=== PATIENT | male | born 1945 | race Caucasian/White ===

== ENCOUNTER 2016-10-12 09:55 | Observation (INO) ==
[2016-10-12 11:50] VITALS: BP 125/78
--- NOTE | 2016-10-12 13:18 | Cardiology History & Physical ---
Date of Encounter: 10/12/16 Time of Encounter: 12:30 Assessment and Plan (1) Atrial fibrillation Current Visit: Yes Status: Chronic Per cardiology: -KNown history of paroxysmal atrial fibrillation. -On eliquis and denies missed doses. -Patient is supposed to be on rhythmol, however states he is unable to afford medication and has not been taking for 2 weeks. -Cardiology will discharge patient and will schedule follow up appointment with Dr.John Feliz in 2-3 weeks. FOllow up set. Qualifiers: Atrial fibrillation type: paroxysmal Qualified Code(s): I48.0 - Paroxysmal atrial fibrillation (2) Encounter for monitoring anti-arrhythmic therapy Current Visit: Yes Status: Acute Per cardiology: -Patient with admission for rhythmol increase, however upon admission, patient admitted to not being able to afford rhythmol. Patient states he has not taken medication in 2 weeks. -Called cardiology office to see if there are any assistance programs for rhythmol, none known of. -Spoke to Jenny Carrillo pharmacist, who confirmed he does not known of any assistance programs. -Called [facility] in [place] for black check. [facility] states rhythmol would be $71/month for 225mg dose. Patient states he still cannot afford $71/month. -Cardiology will discharge patient and will follow up in outpatient setting, see discharge summary. History of Present Illness Chief complaint: rhythmol increase HPI: Mr. Gleason is a 71 year old male with a relevant past medical history of COPD, a.fib, CHF, GERD, non-ischemic cardiomyopathy, hyperlipidemia, HTN. Patient presents to [facility] for rhythmol increase. Patient has paroxysmal atrial fibrillation with holter monitor with baseline rhythml SR with frequent atrial fibrillation/ flutter with RVR. Patient denies fluttering or current palpitations. Patient denies chest pain. Patient is O2 dependent at all times. Patient states he has been out of his rhythmol for 2 weeks due to financial constraints. Patient states his rent was recently increased and he is no longer able to afford rhythmol. Past Med Surg Social Fam HX - Past Medical History Attestation: Yes The following information was validated with the patient. Source: patient, old records reviewed Medical history: arthritis, asthma, atrial fibrillation, COPD, GERD, GI bleed, hypertension Psychiatric history: no psych history - Past Surgical History Surgical History: cataract, hip replacement - Social History Smoking Status: Former smoker Smokeless Tobacco Status: No Alcohol use: occasionally Drug use: none - Family History Mother Living Status: Hx Family Cardiac Disorders: Yes Father Living Status: Hx Family Cardiac Disorders: Yes Hx Family Cancer: Yes Medications and Allergies Roflumilast [Daliresp] 500 mcg PO QAM 03/22/15 [History] Ipratropium/Albuterol Neb [Duoneb] 3 ml IH Q4HR PRN 05/25/16 [History] Acetaminophen [Tylenol] 650 mg PO Q6HR PRN #0 tablet 06/05/16 [Rx] Apixaban [Eliquis] 5 mg PO BID #60 tablet 06/05/16 [Rx] Albuterol Sulfate [Proair Hfa] 2 puff IH Q4H PRN 10/12/16 [History] Furosemide [Lasix] 40 mg PO DAILY 10/12/16 [History] HYDROcodone/Acet 5/325 mg [[place] 5-325 mg] 1 tab PO Q6H PRN 10/12/16 [History] Metoprolol [Lopressor] 25 mg PO BID #60 tablet 10/12/16 [Rx] Allergies No Known Allergies Allergy (Verified 08/13/16 21:06) All Systems Review: A 10-system review of systems was performed and is negative for pertinent findings except as documented above in the HPI. - Cardiovascular Cardiovascular: as per HPI, irregular heart rhythm Physical Examination Vital Signs, Last 4 Hours Temp Pulse Resp BP Pulse Ox 10/12/16 12:15 79 10/12/16 11:49 98.0 F 75 18 125/78 100 10/12/16 11:32 100 General: Conversant, No Apparent Distress HEENT: Atraumatic, Normocephaly, Mucus Membranes Moist Neck: No JVD, Normal carotid pulses Cardiac: Reg Rate and Rhythm, Normal S1 and S2, No Murmur Lungs: Other (Lung sounds diminished throughout) Neuro: Alert and responsive, No focal deficits noted Abdomen: Soft, Non-Tender Skin: No rashes noted on visualized skin Musculoskeletal: No Chest Wall Tenderness Extremities: No Clubbing, No Cyanosis, No Edema, Normal Pulses Results - Imaging and Cardiology Echo: report reviewed - EKG Interpretation EKG results cardiology: personally reviewed (ECG with sinus rhythm with PVCs and PACs, HR 73. QRS 85ms, Qt 374ms, Qtc 399ms.)
--- NOTE | 2016-10-12 14:19 | Discharge Summary ---
Date of Encounter: 10/12/16 Time of Encounter: 14:00 - Discharge Diagnosis (1) Atrial fibrillation Priority: Primary Status: Chronic Comments: Patient with known history of paroxysmal atrial fibrillation. Patient on eliquis. Qualifiers: Atrial fibrillation type: paroxysmal Qualified Code(s): I48.0 - Paroxysmal atrial fibrillation (2) Encounter for monitoring anti-arrhythmic therapy Priority: Secondary Status: Acute Comments: Patient with admission for rhythmol increase, however patient unable to afford medication. Patient is being discharged due to unable to afford medication. Patient will follow up with Dr.John Feliz in outpatient setting. Follow up set up. - Discharge Medications Prescriptions: Metoprolol [Lopressor] 25 mg PO BID #60 tablet Home Medications: Roflumilast [Daliresp] 500 mcg PO QAM 03/22/15 [History] Ipratropium/Albuterol Neb [Duoneb] 3 ml IH Q4HR PRN 05/25/16 [History] Acetaminophen [Tylenol] 650 mg PO Q6HR PRN #0 tablet 06/05/16 [Rx] Apixaban [Eliquis] 5 mg PO BID #60 tablet 06/05/16 [Rx] Albuterol Sulfate [Proair Hfa] 2 puff IH Q4H PRN 10/12/16 [History] Furosemide [Lasix] 40 mg PO DAILY 10/12/16 [History] HYDROcodone/Acet 5/325 mg [[place] 5-325 mg] 1 tab PO Q6H PRN 10/12/16 [History] Metoprolol [Lopressor] 25 mg PO BID #60 tablet 10/12/16 [Rx] Allergies/Adverse Reactions: Allergies No Known Allergies Allergy (Verified 08/13/16 21:06) Procedures/tests Complete & Pending: Procedures Performed prior 72 hours Category Date Time Status ECG 12 lead ECG [ECG] Stat Y 10/12/16 12:04 Ordered Date of admission: 10/12/16 11:11 Primary care physician: Merissa Griffith CNP Consults: 10/12/16 12:33 Consult to Invasive Line Access Team [CONS] Routine Reason for Consult: NO IV ACCESS. ATTEMPTED MULTPLE TIMES Line Type: EPIV 10/12/16 12:34 Consult to Invasive Line Access Team [CONS] Routine Reason for Consult: limited access Line Type: EPIV Discharging clinician: Barbara Guerra Anticipated date of discharge: 10/12/16 - Patient Status Disposition: Home, Self-Care Functional capacity at discharge: independent ambulation - Discharge Instructions Follow Up With: Merissa Griffith CNP [Primary Care Provider] - - Diet and Activity Activity: increase activity as tolerated Diet: low fat, low cholesterol, low salt diet - Hospital Course Hospital course: Mr. Gleason is a 71 year old male who was admitted for rhythmol increase, however during admission process patient admitted that he has not been taking medication due to financial constraints. Patient states his rent was recently increased and he has been without rhythmol medication for 2 weeks. Attempted to find assistance program for medication, attempt unsucessful. Rhythmol black checked at $71 per [facility], however patient states that this is still unaffordable for him. Patient was discussed with who states to discharge patient and have him follow up in outpatient setting. FOllow up set. Patient encouraged to call cardiology office if unable to afford medications in the future. Rhythmol officially stopped and patient started back on previous dose of lopressor. Patient encouraged to call if develops any symptoms of a.fib. Patient states understanding and agrees with plan. Patient re-inforced to continue taking eliquis and to call with any cost concerns. - Time Spent with Patient Total time spent providing and/or coordinating discharge services: Greater than 30 minutes Physical Examination Vital Signs, Last 4 Hours Temp Pulse Resp BP Pulse Ox 10/12/16 12:15 79 10/12/16 11:49 98.0 F 75 18 125/78 100 10/12/16 11:32 100 General: Conversant, No Apparent Distress HEENT: Atraumatic, Normocephaly, Mucus Membranes Moist Neck: No JVD, Normal carotid pulses Cardiac: Reg Rate and Rhythm, Normal S1 and S2, No Murmur Lungs: Other (Lung sounds diminished throughout) Neuro: Alert and responsive, No focal deficits noted Abdomen: Soft, Non-Tender Skin: No rashes noted on visualized skin Musculoskeletal: No Chest Wall Tenderness Extremities: No Clubbing, No Cyanosis, No Edema, Normal Pulses
[2016-10-12] MEDS ORDERED: Naloxone 0.4 MG/ML INJ IVP PRN (14:29)
[2016-10-12] MEDS ORDERED: *HR* HYDROcodone/Acet 5/325 mg TABLET PO PRN (14:31)
[2016-10-12] MEDS ORDERED: Acetaminophen 325 MG TABLET PO PRN (14:31)
[2016-10-12] MEDS ORDERED: Ipratropium/Albuterol Neb 3 ML IH PRN (14:31)
[2016-10-12] MEDS ORDERED: APIXABAN 5 MG TABLET PO SCH (21:00)
--- NOTE | 2016-10-13 07:05 | Electrocardiograph Report ---
[place] [id number] Test Date: 2016-10-12 Pat Name: Nash Gleason Department: 110 Room: 2N10 Gender: M [employer] Clerk: FIONA : 1945 Requested By: Barbara Guerra Order Number: [id number] Reading MD: Julio Knight MD Measurements Intervals [place] Rate: 73 P: [place]: 0 QRS: 64 QRSD: 85 T: 59 QT: 374 QTc: 399 Interpretive Statements SINUS RHYTHM WITH PACS AND PVCS Electronically Signed On 10-13-2016 7:03:23 EDT by Julio Knight MD
[2016-10-13] MEDS ORDERED: (Roflumilast [Daliresp] 500 MCG) PO SCH (09:00)
[2016-10-13] MEDS ORDERED: Furosemide 40 MG TABLET PO SCH (09:00)
== END 2016-10-12 14:52 | disposition home or self-care (01) ==
LOC: 2NNU
PROVIDERS: ADMIT Nurse Practitioner Family; ATTEND Emergency Medicine

== ENCOUNTER 2021-08-11 21:43 | Inpatient (IN) ==
[2021-08-11] MEDS ORDERED: Isovue-370 500 ML BOTTLE IVP ONE (22:49)
[2021-08-11] MEDS ORDERED: Azithromycin 500 MG in 0.9 % Sodium Chloride 250 ML IVPB ONE (22:51)
[2021-08-11 23:21] LABS: Basophils % 0.6 %; Hematocrit 39.1 % (37.5-50.1); Hemoglobin 12.6 g/dL (12.9-16.9); Immature Granulocytes % 3.7 % (0-4); Lymphocytes # 0.5 K/mcL (0.6-4.6); Lymphocytes % 15.5 %; Mean Corpuscular HGB Conc 32.2 g/dL (31.6-35.5); Mean Corpuscular Volume 99.2 fL (83.0-100.0); Mean Platelet Volume 9.2 fL (9.4-12.4); Monocytes # 0.1 K/mcL (0.0-1.3); Monocytes % 2.8 %; Neutrophils # 2.5 K/mcL (1.6-8.9); Platelet Count 204 K/mcL (140-400); Red Blood Count 3.94 M/mcL (4.19-5.50); Red Cell Distribution Width 13.6 % (11.5-14.5); Segmented Neutrophils % 77.4 %; White Blood Count 3.2 K/mcL (4.3-11.1)
[2021-08-11 23:28] LABS: INR 1.1; Prothrombin Time 11.7 Seconds (9.4-12.1)
[2021-08-11 23:30] LABS: Activated Partial Thrombo Time 31.9 Seconds (26.0-36.0)
[2021-08-11 23:51] LABS: BUN/Creatinine Ratio 39 (6-26); Blood Urea Nitrogen 46 mg/dL (8-23); Calcium 7.9 mg/dL (8.6-10.3); Carbon Dioxide 22 mEq/L (23-29); Chloride 105 mEq/L (98-107); Glucose 129 mg/dL (70-105); Osmolality,Calculated 296 (280-300); Potassium 5.7 mEq/L (3.5-5.1); Sodium 136 mEq/L (136-145); eGFR For African Americans > 60 (> 60); eGFR For Non-African Americans > 60 (> 60)
[2021-08-12] MEDS ORDERED: Melatonin 3 MG TABLET PO PRN (00:19)
[2021-08-12] MEDS ORDERED: Ondansetron 4 MG/2 ML VIAL IVP PRN (00:19)
[2021-08-12] MEDS ORDERED: Ipratropium 1 PUFF INHALER IH PRN (00:26)
[2021-08-12 00:39] LABS: Troponin I 0.04 ng/mL (< 0.04)
[2021-08-12] MEDS ORDERED: *HR* Metoprolol 5 MG/5 ML VIAL IVP PRN (01:30)
[2021-08-12] MEDS: Apixaban 5 MG TABLET PO SCH ×2 (08:55→21:53)
[2021-08-12] MEDS: Furosemide 40 MG TABLET PO SCH (08:55)
[2021-08-12] MEDS: Azithromycin 500 MG in 0.9 % Sodium Chloride 250 ML IVPB SCH (08:55)
[2021-08-12 10:29] LABS: Hematocrit 37.1 % (37.5-50.1); Hemoglobin 12.4 g/dL (12.9-16.9); Mean Corpuscular HGB Conc 33.4 g/dL (31.6-35.5); Mean Corpuscular Hemoglobin 33.2 pg (28.0-33.3); Mean Corpuscular Volume 99.2 fL (83.0-100.0); Mean Platelet Volume 9.1 fL (9.4-12.4); Platelet Count 213 K/mcL (140-400); Red Blood Count 3.74 M/mcL (4.19-5.50); Red Cell Distribution Width 13.6 % (11.5-14.5); White Blood Count 2.7 K/mcL (4.3-11.1)
[2021-08-12 10:38] LABS: INR 1.1; Prothrombin Time 11.9 Seconds (9.4-12.1)
[2021-08-12 10:41] LABS: Activated Partial Thrombo Time 33.9 Seconds (26.0-36.0)
[2021-08-12 10:51] LABS: Troponin I 0.03 ng/mL (< 0.04)
[2021-08-12] MEDS: Acetaminophen 325 MG TABLET PO PRN (21:51)
[2021-08-13 05:38] LABS: Basophils % 0.2 %; Hematocrit 41.7 % (37.5-50.1); Hemoglobin 13.5 g/dL (12.9-16.9); Immature Granulocytes % 0.9 % (0-4); Lymphocytes # 1.1 K/mcL (0.6-4.6); Lymphocytes % 8.1 %; Mean Corpuscular HGB Conc 32.4 g/dL (31.6-35.5); Mean Corpuscular Volume 98.8 fL (83.0-100.0); Monocytes # 0.9 K/mcL (0.0-1.3); Monocytes % 6.3 %; Neutrophils # 11.9 K/mcL (1.6-8.9); Platelet Count 277 K/mcL (140-400); Red Blood Count 4.22 M/mcL (4.19-5.50); Red Cell Distribution Width 13.6 % (11.5-14.5); Segmented Neutrophils % 84.5 %; White Blood Count 14.1 K/mcL (4.3-11.1)
[2021-08-13 05:43] LABS: Fibrinogen 380 mg/dL (169-393)
[2021-08-13 05:55] LABS: D-Dimer 441 ng/mLFEU (0-500)
[2021-08-13 06:02] LABS: BUN/Creatinine Ratio 45 (6-26); Blood Urea Nitrogen 52 mg/dL (8-23); Calcium 8.2 mg/dL (8.6-10.3); Carbon Dioxide 27 mEq/L (23-29); Chloride 103 mEq/L (98-107); Glucose 119 mg/dL (70-105); Lactate Dehydrogenase 240 Units/L (140-271); Magnesium 2.3 mg/dL (1.6-2.6); Osmolality,Calculated 301 (280-300); Phosphorous 3.8 mg/dL (2.7-4.5); Potassium 5.4 mEq/L (3.5-5.1); Sodium 138 mEq/L (136-145); eGFR For African Americans > 60 (> 60); eGFR For Non-African Americans > 60 (> 60)
[2021-08-13] MEDS: Cyanocobalamin (B-12) 1,000 MCG TABLET PO SCH (08:25)
[2021-08-13] MEDS: Apixaban 5 MG TABLET PO SCH ×2 (08:26→19:35)
[2021-08-13] MEDS: Azithromycin 500 MG in 0.9 % Sodium Chloride 250 ML IVPB SCH (08:26)
[2021-08-13] MEDS: Furosemide 40 MG TABLET PO SCH (08:26)
[2021-08-13 09:33] LABS: ABG Base Excess -1 mEq/L (-2 to 3); ABG HCO3 23 mEq/L (21-27); ABG Oxygen Saturation 95 % (95-98); ABG PCO2 35 mmHg (35-45); ABG PH 7.42 pH Units (7.32-7.45); ABG PO2 74 mmHg (85-104); ABG TCO2 24 mEq/L (20-26)
[2021-08-13] MEDS: Ipratropium 1 PUFF INHALER IH SCH ×2 (09:48→14:25)
[2021-08-13] MEDS: Acetaminophen 325 MG TABLET PO PRN (09:56)
[2021-08-13] MEDS: Ipratropium/Albuterol Neb 3 ML IH SCH ×3 (16:01→21:20)
[2021-08-13] MEDS: Budesonide/Formoterol 160/4.5 1 PUFF INH IH SCH (21:06)
[2021-08-14] MEDS: Ipratropium/Albuterol Neb 3 ML IH SCH ×3 (02:09→16:07)
[2021-08-14] MEDS: Budesonide/Formoterol 160/4.5 1 PUFF INH IH SCH ×2 (07:35→20:14)
[2021-08-14] MEDS: Cyanocobalamin (B-12) 1,000 MCG TABLET PO SCH (08:16)
[2021-08-14] MEDS: Furosemide 40 MG TABLET PO SCH (08:16)
[2021-08-14] MEDS: Apixaban 5 MG TABLET PO SCH ×2 (08:16→20:27)
[2021-08-14] MEDS: Azithromycin 500 MG in 0.9 % Sodium Chloride 250 ML IVPB SCH (08:16)
[2021-08-14 08:18] LABS: A.calcoaceticus-baumannii cplx Not Detected (Not Detect); Bacteroides fragilis by PCR Not Detected (Not Detect); Candida albicans by PCR Not Detected (Not Detect); Candida auris by PCR Not Detected (Not Detect); Candida glabrata by PCR Not Detected (Not Detect); Candida krusei by PCR Not Detected (Not Detect); Candida parapsilosis by PCR Not Detected (Not Detect); Candida tropicalis by PCR Not Detected (Not Detect); Crypto. neoformans/gattii PCR Not Detected (Not Detect); Enterobacter cloacae Cmplx PCR Not Detected (Not Detect); Enterobacterales by PCR Not Detected (Not Detect); Enterococcus faecalis by PCR Not Detected (Not Detect); Enterococcus faecium by PCR Not Detected (Not Detect); Escherichia coli by PCR Not Detected (Not Detect); Klebs. pneumoniae group by PCR Not Detected (Not Detect); Klebsiella aerogenes by PCR Not Detected (Not Detect); Klebsiella oxytoca by PCR Not Detected (Not Detect); Proteus by PCR Not Detected (Not Detect); Pseudomonas aeruginosa by PCR Not Detected (Not Detect); Salmonella species by PCR Not Detected (Not Detect); Serratia marcescens by PCR Not Detected (Not Detect); Staph epidermidis by PCR Not Detected (Not Detect); Staph lugdunensis by PCR Not Detected (Not Detect); Staphylococcus aureus by PCR Not Detected (Not Detect); Staphylococcus by PCR DETECTED (Not Detect); Stenotrophomonas maltophilia Not Detected (Not Detect); Streptococcus agalactiae(B)PCR Not Detected (Not Detect); Streptococcus by PCR Not Detected (Not Detect); Streptococcus pneumoniae PCR Not Detected (Not Detect); Streptococcus pyogenes (A) PCR Not Detected (Not Detect); mcr-1 Colistin-Resist Gene Not Detected (Not Detect); mecA/C & MREJ (MRSA) Gene Not Detected (Not Detect); mecA/C Methicillin-Resist Gene Not Detected (Not Detect); vanA/B Vancomycin-Resist Genes Not Detected (Not Detect)
[2021-08-14 13:55] LABS: BUN/Creatinine Ratio 49 (6-26); Blood Urea Nitrogen 46 mg/dL (8-23); Calcium 8.3 mg/dL (8.6-10.3); Carbon Dioxide 25 mEq/L (23-29); Chloride 106 mEq/L (98-107); Glucose 159 mg/dL (70-105); Osmolality,Calculated 305 (280-300); Potassium 4.5 mEq/L (3.5-5.1); Sodium 140 mEq/L (136-145); eGFR For African Americans > 60 (> 60); eGFR For Non-African Americans > 60 (> 60)
[2021-08-14] MEDS: Ipratropium 1 PUFF INHALER IH SCH ×2 (20:14→23:12)
[2021-08-15 01:58] LABS: Basophils % 0.3 %; Hemoglobin 12.3 g/dL (12.9-16.9); Immature Granulocytes % 1.3 % (0-4); Lymphocytes # 0.9 K/mcL (0.6-4.6); Lymphocytes % 9.7 %; Mean Corpuscular HGB Conc 34.2 g/dL (31.6-35.5); Mean Corpuscular Hemoglobin 32.8 pg (28.0-33.3); Mean Platelet Volume 9.3 fL (9.4-12.4); Monocytes # 0.8 K/mcL (0.0-1.3); Monocytes % 9.1 %; Neutrophils # 7.2 K/mcL (1.6-8.9); Platelet Count 245 K/mcL (140-400); Red Blood Count 3.75 M/mcL (4.19-5.50); Red Cell Distribution Width 13.3 % (11.5-14.5); Segmented Neutrophils % 79.6 %
[2021-08-15 02:16] LABS: BUN/Creatinine Ratio 48 (6-26); Blood Urea Nitrogen 40 mg/dL (8-23); Calcium 8.2 mg/dL (8.6-10.3); Carbon Dioxide 29 mEq/L (23-29); Chloride 106 mEq/L (98-107); Glucose 125 mg/dL (70-105); Osmolality,Calculated 301 (280-300); Potassium 3.8 mEq/L (3.5-5.1); Sodium 140 mEq/L (136-145); eGFR For African Americans > 60 (> 60); eGFR For Non-African Americans > 60 (> 60)
[2021-08-15 02:18] LABS: Magnesium 2.4 mg/dL (1.6-2.6); Phosphorous 2.2 mg/dL (2.7-4.5)
[2021-08-15] MEDS: Ipratropium 1 PUFF INHALER IH SCH ×5 (03:37→20:02)
[2021-08-15] MEDS: Cyanocobalamin (B-12) 1,000 MCG TABLET PO SCH (07:13)
[2021-08-15] MEDS: Apixaban 5 MG TABLET PO SCH ×2 (07:13→20:13)
[2021-08-15] MEDS: Azithromycin 500 MG in 0.9 % Sodium Chloride 250 ML IVPB SCH (07:16)
[2021-08-15] MEDS: Budesonide/Formoterol 160/4.5 1 PUFF INH IH SCH ×2 (07:42→20:04)
[2021-08-15] MEDS: Furosemide 40 MG TABLET PO SCH (09:23)
[2021-08-15] MEDS: Magnesium Oxide 400 MG TABLET PO SCH (20:12)
[2021-08-16] MEDS: Ipratropium 1 PUFF INHALER IH SCH ×3 (00:12→07:50)
[2021-08-16 03:08] VITALS: TEMP 97.9
[2021-08-16 07:10] VITALS: BP 137/77; PULSE 88
[2021-08-16] MEDS: Budesonide/Formoterol 160/4.5 1 PUFF INH IH SCH (07:50)
[2021-08-16] MEDS: Furosemide 40 MG TABLET PO SCH (08:17)
[2021-08-16] MEDS: Magnesium Oxide 400 MG TABLET PO SCH (08:18)
[2021-08-16] MEDS: Cyanocobalamin (B-12) 1,000 MCG TABLET PO SCH (08:18)
[2021-08-16] MEDS: Apixaban 5 MG TABLET PO SCH (08:18)
[2021-08-16] MEDS: Azithromycin 500 MG in 0.9 % Sodium Chloride 250 ML IVPB SCH (08:19)
[2021-08-16 10:26] VITALS: O2SAT 100
== END 2021-08-16 13:53 | disposition home or self-care (01) | DRG 177 ==
LOC: 3BNU 21:43 → EMEROOARM 21:43 → SUATTDRO 08-12 01:10 → OBSVTOIN 08-12 01:10 → 3BNU 08-12 03:58
PROVIDERS: ADMIT Internal Medicine; ATTEND Internal Medicine